=== PATIENT | female | born 1975 | race Caucasian/White ===

== ENCOUNTER 2024-05-13 11:19 | Emergency (ER) | payer OTHER ==
[~2024-05-13] VITALS: Ht 162.6 cm; Wt 70.0 kg
[2024-05-13 11:21] VITALS: O2SAT 99
[2024-05-13 12:54] VITALS: BP 124/82; PULSE 82; RESP 18
[2024-05-13] MEDS: LIDOCAINE HCL/PF 1% 10 MG/ML 5ML VIAL INFIL ONE (12:54)
[2024-05-13] MEDS: OXYCODONE HCL/ACETAMINOPHEN 5/325MG TABLET PO ONE (12:54)
[2024-05-13] MEDS ORDERED: HYDR-4001 MT (14:45)
[2024-05-13] MEDS ORDERED: IBUP-2029 MT (14:45)
== END 2024-05-13 15:03 | disposition home or self-care (01) ==
LOC: ER 11:31
DX: S52.571A Other intraarticular fracture of lower end of right radius, initial encounter for closed fracture (principal); I10 Essential (primary) hypertension; E78.00 Pure hypercholesterolemia, unspecified; Z79.899 Other long term (current) drug therapy; W18.30XA Fall on same level, unspecified, initial encounter; Y93.89 Activity, other specified; Y99.8 Other external cause status; Y92.89 Other specified places as the place of occurrence of the external cause
CPT/HCPCS: 99283; 73110; 29125; J3490; A4565